=== PATIENT | female | born 1965 | race Caucasian/White ===

== ENCOUNTER 2025-02-18 09:31 | Outpatient (RCR) | payer OTHER, SELFPAY | END 2025-02-18 23:59 | disposition home or self-care (01) | LOC: RPT 09:31 | PROVIDERS: ATTENDING PHYSICIAN Physician Assistant | DX: M25.50 Pain in unspecified joint (principal); M77.02 Medial epicondylitis, left elbow; G56.22 Lesion of ulnar nerve, left upper limb; Z73.6 Limitation of activities due to disability | CPT/HCPCS: 97110; 97162 ==

== ENCOUNTER 2025-03-19 11:17 | Outpatient (RCR) | payer OTHER, SELFPAY | END 2025-03-19 23:59 | disposition home or self-care (01) | LOC: RPT 11:17 | PROVIDERS: ATTENDING PHYSICIAN Physician Assistant | DX: M77.02 Medial epicondylitis, left elbow (principal); G56.22 Lesion of ulnar nerve, left upper limb; Z73.6 Limitation of activities due to disability; M25.522 Pain in left elbow | CPT/HCPCS: 97110; 97140 ==

== ENCOUNTER 2025-04-15 11:15 | Outpatient (RCR) | payer OTHER, SELFPAY | END 2025-04-15 23:59 | disposition home or self-care (01) | LOC: RPT 11:15 | PROVIDERS: ATTENDING PHYSICIAN Physician Assistant | DX: M77.02 Medial epicondylitis, left elbow (principal); G56.22 Lesion of ulnar nerve, left upper limb; Z73.6 Limitation of activities due to disability; M25.522 Pain in left elbow | CPT/HCPCS: 97110; 97140 ==

== ENCOUNTER 2025-04-29 09:49 | Outpatient (RCR) | payer OTHER, SELFPAY | END 2025-05-07 13:16 | disposition home or self-care (01) | LOC: RPT 09:49 | PROVIDERS: ATTENDING PHYSICIAN Physician Assistant | DX: M77.02 Medial epicondylitis, left elbow (principal); G56.22 Lesion of ulnar nerve, left upper limb; Z73.6 Limitation of activities due to disability; M25.522 Pain in left elbow | CPT/HCPCS: 97110 ==